=== PATIENT | male | born 1960 | race American Indian/Alaskan Native ===

== ENCOUNTER 2020-05-27 10:29 | Observation (INO) | payer OTHER ==
--- NOTE | 2020-05-27 11:41 | Emergency Department Report ---
HPI - General Chief Complaint: Altered Mental Status Time Seen by Provider: 05/27/20 11:27 - HPI HPI: This is a 59-year-old male who presents to the emergency department via EMS after he was found wandering around in the street. The patient recently had a stroke and was treated at [facility] and then sent to a personal jail. Patient has complaints about this personal jail including saying that there is "coronavirus there and some tyra last night." The patient also says that he "spent the last 2 weeks in the basement." Patient says that this morning he "had to get the hell out of there" and was walking up and down the street when he ran into some people who then called 911. The police arrived and then EMS was called. The patient is AAO x2 to person and place but is slightly off on time. He does know that Reji is the president. Patient is sometimes tearful and is a poor historian. Unknown if he has any residual deficits from the stroke. He also has a past medical history of hypertension. Patient complains of some generalized weakness and says "something was wrong, I do not know what's happening." ED Past Medical Hx - Past Medical History Previous Medical History?: Yes Hx Hypertension: Yes Hx CVA: Yes - Surgical History Additional Surgical History: unknown - Social History Smoking Status: Never Smoker Substance Use Type: None ED Review of Systems ROS: Stated complaint: CONFUSED Other details as noted in HPI Comment: All other systems reviewed and negative Constitutional: weakness. denies: fever Eyes: denies: vision change Respiratory: denies: cough, shortness of breath Cardiovascular: denies: chest pain, palpitations Gastrointestinal: denies: nausea, vomiting Musculoskeletal: denies: back pain, arthralgia Neurological: confusion. denies: headache Physical Exam - Physical Exam Vital Signs: Vital Signs 05/27/20 11:18 Temperature 97.9 F Pulse Rate 96 H Respiratory 18 Rate Blood Pressure 136/100 O2 Sat by Pulse 98 Oximetry Physical Exam: GENERAL: The patient is well-developed well-nourished. HENT: Normocephalic. Atraumatic. Patient has moist mucous membranes. EYES: Extraocular motions are intact. No nystagmus. NECK: Supple. Trachea is midline. CHEST/LUNGS: Clear to auscultation. There is no respiratory distress noted. HEART/CARDIOVASCULAR: Regular. There is no tachycardia. There is no murmur. ABDOMEN: Abdomen is soft, nontender. Patient has normal bowel sounds. SKIN: Skin is warm and dry. NEURO: The patient is awake, alert. Patient is AAO x2 to person and place but not time. The patient has no focal neurologic deficits. There is some mild dysarthria. MUSCULOSKELETAL: There is no tenderness or deformity. There is no limitation range of motion. PSYCH: Patient is emotionally labile. ED Course Vital Signs 05/27/20 11:18 Temperature 97.9 F Pulse Rate 96 H Respiratory 18 Rate Blood Pressure 136/100 O2 Sat by Pulse 98 Oximetry ED Medical Decision Making - Lab Data Result diagrams: 05/27/20 11:42 05/27/20 11:42 - EKG Data -: EKG Interpreted by [facility] EKG shows normal: sinus rhythm, axis, intervals (Prolonged VT interval), QRS complexes (Low voltage), ST-T waves Rate: normal - EKG Data Interpretation: other (Sinus rhythm at 86 bpm, normal axis, prolonged VT interval, low voltage QRS) - Radiology Data Radiology results: report reviewed CT HEAD WITHOUT CONTRAST INDICATION / CLINICAL INFORMATION: Altered mental status. TECHNIQUE: All CT scans at this location are performed using CT dose reduction for ALARA by means of automated exposure control. COMPARISON: None available. FINDINGS: HEMORRHAGE: None. EXTRA-AXIAL SPACES: Normal in size and morphology for the patient's age. VENTRICULAR SYSTEM: Normal in size and morphology for the patient's age. CEREBRAL PARENCHYMA: Encephalomalacia is noted of the right occipital lobe. Lacunar infarcts are noted of bilateral basal thalami and right basal ganglia. No evidence of large territory infarction. Chronic microvascular changes are noted of the periventricular subcortical white matter. CEREBELLUM / BRAINSTEM: No significant abnormality. ORBITS: Normal as visualized. SOFT TISSUES of HEAD: No significant abnormality. CALVARIUM: No significant abnormality. PARANASAL SINUSES / MASTOID AIR CELLS: Normal as visualized. ADDITIONAL FINDINGS: None. IMPRESSION: 1. No acute intracranial abnormality. 2. Encephalomalacia of the right occipital lobe. 3. Old lacunar infarcts of bilateral basal ganglia. 4. Chronic microvascular changes. - Medical Decision Making This patient presents to the emergency department after he was supposedly wandering around on the street. The patient says that he was not wandering but instead left his personal jail because he was unhappy there and felt it to be dangerous. However, it is difficult to know what the truth is that the patient is currently AAO x2 to person and place but not time. Patient has some mild dysarthria but also had a recent stroke and says that this is secondary to his previous stroke. Other than the dysarthria and the confusion, the patient does not have any other focal or lateralizing deficits at this time. There is no obvious last known well time. CT scan of the head without contrast does not show any bleed, shift, mass, ischemia, or any other acute process. Patient's labs have been unremarkable including CBC, metabolic panel, troponin, TSH, ammonia, blood alcohol level, UDS and urinalysis. Case management was able to get in touch with some family who is in another state and says the patient has some type of dementia. However we were unable to get an idea of exactly what his baseline mental status is and unable to find out about his personal jail. Patient symptoms could be secondary to dementia, encephalopathy, psychiatric disease versus other. The patient will be admitted to the hospital for further evaluation and treatment and was excepted for admission by the hospitalist, Dr. Turner. Critical Care Time: No Critical care attestation.: If time is entered above; I have spent that time in minutes in the direct care of this critically ill patient, excluding procedure time. ED Disposition Clinical Impression: Encephalopathy Altered mental status Qualifiers: Altered mental status type: unspecified Qualified Code(s): R41.82 - Altered mental status, unspecified Disposition: DC-[id number] OP ADMIT IP TO THIS HOSP Is pt being admited?: Yes Condition: Fair Time of Disposition: 14:13
[2020-05-27 12:07] LABS: Basophils # (Auto) 0.1 K/mm3 (0.0-0.1); Basophils % (Auto) 0.9 % (0.0-1.8); Eosinophils # (Auto) 0.1 K/mm3 (0.0-0.4); Eosinophils % (Auto) 1.1 % (0.0-4.3); Hematocrit 43.4 % (35.5-45.6); Hemoglobin 14.4 gm/dl (11.8-15.2); Lymphocytes # (Auto) 1.3 K/mm3 (1.2-5.4); Lymphocytes % (Auto) 21.5 % (13.4-35.0); Mean Corpuscular HGB Conc 33 % (32-34); Mean Corpuscular Volume 91 fl (84-94); Monocytes # (Auto) 0.7 K/mm3 (0.0-0.8); Monocytes % (Auto) 11.7 % (0.0-7.3); Platelet Count 230 K/mm3 (140-440); Red Blood Count 4.78 M/mm3 (3.65-5.03); Red Cell Distribution Width 14.6 % (13.2-15.2)
[2020-05-27 12:22] LABS: Alanine Aminotransferase 12 units/L (7-56); Albumin 3.8 g/dL (3.9-5); BUN/Creatinine Ratio 17; Blood Urea Nitrogen 17 mg/dL (9-20); Calcium 9.4 mg/dL (8.4-10.2); Hemolysis Index 78
--- NOTE | 2020-05-27 12:51 | Cat Scan Report ---
CT HEAD WITHOUT CONTRAST INDICATION / CLINICAL INFORMATION: Altered mental status. TECHNIQUE: All CT scans at this location are performed using CT dose reduction for ALARA by means of automated e xposure control. COMPARISON: None available. FINDINGS: HEMORRHAGE: None. EXTRA-AXIAL SPACES: Normal in size and morphology for the patient's age. VENTRICULAR SYSTEM: Normal in size and morphology for the patient's age. CEREBRAL PARENCHYMA: Encephalomalacia is noted of the right occipital lobe. Lacunar infarcts are note d of bilateral basal thalami and right basal ganglia. No evidence of large territory infarction. Clinic Nurse thania microvascular changes are noted of the periventricular subcortical white matter. CEREBELLUM / BRAINSTEM: No significant abnormality. ORBITS: Normal as visualized. SOFT TISSUES of HEAD: No significant abnormality. CALVARIUM: No significant abnormality. PARANASAL SINUSES / MASTOID AIR CELLS: Normal as visualized. ADDITIONAL FINDINGS: None. IMPRESSION: 1. No acute intracranial abnormality. 2. Encephalomalacia of the right occipital lobe. 3. Old lacunar infarcts of bilateral basal ganglia. 4. Chronic microvascular changes. Signer Name: Julius Perez MD Signed: 05/27/2020 12:46 PM Workstation Name: [id number]
[2020-05-27] MEDS ORDERED: ALPRAZolam 0.5 MG TAB PO ONE (14:09)
[2020-05-27] MEDS ORDERED: ZIPRASIDONE MESYLATE 20 MG VIAL IM ONE (14:23)
[2020-05-27] MEDS ORDERED: WATER FOR INJ Sterile (PF) 10 ML ONE (14:28)
[2020-05-27 15:20] LABS: Bilirubin,Urine NEG (Negative); Blood,Urine NEG (Negative); Color,Urine Yellow (Yellow); Mucus,Urine 3+ /HPF; Protein,Urine <15 mg/dL mg/dL (Negative)
[2020-05-27 15:25] LABS: Amphetamine Screen,Urine PRESUMPTIVE NEGATIVE; Benzodiazepines Screen,Urine PRESUMPTIVE NEGATIVE; Cannabinoid Screen,Urine PRESUMPTIVE NEGATIVE; Cocaine Screen,Urine PRESUMPTIVE NEGATIVE; Methadone Screen,Urine PRESUMPTIVE NEGATIVE; Opiate Screen,Urine PRESUMPTIVE NEGATIVE
--- NOTE | 2020-05-27 20:24 | History and Physical Report ---
History of Present Illness Date of examination: 05/27/20 Date of admission: 05/27/20 14:30 Chief complaint: AMS History of present illness: This is a 59-year-old male with history of bilateral PE on Xarelto, hypertension, vascular dementia, history of CVA on 2019 who presents to the emergency department via EMS after he was found wandering around in the street. The patient recently was treated at [facility] and then sent to a personal usp on May 22, 2020. Patient has complaints about this personal usp including saying that there is "coronavirus there and some tyra last night." The patient also says that he "spent the last 2 weeks in the basement." Patient says that this morning he "had to get the hell out of there" and was walking up and down the street when he ran into some people who then they called 911. The police arrived and then EMS was called. Patient is sometimes tearful and is a poor historian. Patient complains of some generalized weakness and says "something was wrong, I do not know what's happening." Patient is unable to provide any further details. Patient is being admitted for observation status and for placement. - Past Medical History Previous Medical History?: Yes Hx Hypertension: Yes Hx CVA: Yes hx PE: yes - Surgical History Additional Surgical History: unknown - Social History Smoking Status: Never Smoker Substance Use Type: None -family history: Unknown Review of Systems: Limited as patient appears to be confused Medications and Allergies Allergies Allergy/AdvReac Type Severity Reaction Status Date / Time Unable to Assess Allergy Unverified 05/27/20 11:18 Exam - Physical Exam Narrative exam: GENERAL: The patient is well-developed well-nourished. HENT: Normocephalic. Atraumatic. Patient has moist mucous membranes. EYES: Extraocular motions are intact. No nystagmus. NECK: Supple. Trachea is midline. CHEST/LUNGS: Clear to auscultation. There is no respiratory distress noted. HEART/CARDIOVASCULAR: Regular. There is no tachycardia. There is no murmur. ABDOMEN: Abdomen is soft, nontender. Patient has normal bowel sounds. SKIN: Skin is warm and dry. NEURO: The patient is awake, alert. Patient is AAO x2 to person and place but not time. The patient has no focal neurologic deficits. There is some mild dysarthria. MUSCULOSKELETAL: There is no tenderness or deformity. There is no limitation range of motion. PSYCH: Patient is emotionally labile. - Constitutional Vitals: Temp Pulse Resp BP Pulse Ox 97.4 F L 96 H 21 137/97 95 05/27/20 17:47 05/27/20 17:47 05/27/20 17:47 05/27/20 17:47 05/27/20 17:47 HEART Score - HEART Score Troponin: Troponin T < 0.010 ng/mL (0.00-0.029) 05/27/20 11:42 Results - Labs CBC & Chem 7: 05/27/20 11:42 05/27/20 11:42 Labs: Abnormal lab results 05/27/20 05/27/20 05/27/20 Range/Units 11:42 11:42 11:42 [place] % (Auto) 11.7 H (0.0-7.3) % Carbon Dioxide 21 L (22-30) mmol/L Ammonia 19.0 L (25-60) umol/L Albumin 3.8 L (3.9-5) g/dL - Imaging and Cardiology CT Scan - head: report reviewed Assessment and Plan Acute encephalopathy/delirium -Could be due to underlying history of dementia -CT head showed no acute findings -Patient does not have any focal neurological deficits -Continue supportive care, monitor with frequent neuro check CT head: No acute intracranial abnormality, encephalomalacia of the right occipital lobe, old lacunar infarct of bilateral basal ganglia, chronic microvascular changes. History of bilateral pulmonary embolism -Patient takes Xarelto at home B12 deficiency, continue replacement Hypertension, stable continue home meds Depression, major -Does not have any suicidal ideation or any agitation -Continue supportive care and continue home meds Osteoarthritis of the left hip -Pain meds as needed vascular Dementia associated with behavioral disturbance -Supportive care History of CVA 2019, - patient currently on aspirin, Xarelto and will continue statin Recurrent falls history of Impaired mobility and ADLs -We will consult PT DVT prophylaxis, patient on Xarelto Discharge planning issues: Consult briefcase sewer for placement
[2020-05-27] MEDS ORDERED: ACETAMINOPHEN 325 MG TAB PO PRN (20:31)
[2020-05-27] MEDS ORDERED: ONDANSETRON 4 MG/2 ML INJ IV PRN (20:31)
[2020-05-27] MEDS ORDERED: MELATONIN 5 MG TAB PO PRN (20:34)
[2020-05-27] MEDS ORDERED: SODIUM CHLORIDE 0.9% 1000 ML 1,000 ML IV SCH (20:45)
[2020-05-27] MEDS: CYANOCOBALAMIN (VIT B-12) 1000 MCG TAB PO SCH (21:32)
[2020-05-27] MEDS: FAMOTIDINE 10 MG TAB PO SCH (21:32)
[2020-05-27] MEDS: GABAPENTIN 100 MG CAP PO SCH (21:32)
[2020-05-27] MEDS: DOCUSATE SODIUM 100 MG CAP PO SCH (21:32)
[2020-05-27] MEDS: oxyCODONE /ACETAMINOPHEN 5-325MG TAB PO PRN (21:40)
[2020-05-27] MEDS: NORTRIPTYLINE 25 MG CAP PO SCH (21:40)
[2020-05-28] MEDS: GABAPENTIN 100 MG CAP PO SCH ×3 (06:21→21:33)
[2020-05-28] MEDS: CYANOCOBALAMIN (VIT B-12) 1000 MCG TAB PO SCH (08:59)
[2020-05-28] MEDS: FAMOTIDINE 10 MG TAB PO SCH ×2 (08:59→21:33)
[2020-05-28] MEDS: ASPIRIN EC 81 MG TAB PO SCH (08:59)
[2020-05-28] MEDS: amLODIPine 10 MG TAB PO SCH (08:59)
[2020-05-28] MEDS: DOCUSATE SODIUM 100 MG CAP PO SCH ×2 (08:59→21:33)
[2020-05-28] MEDS ORDERED: ZIPRASIDONE 20 MG CAP PO ONE (09:00)
[2020-05-28] MEDS ORDERED: RIVAROXABAN 10 MG TAB PO SCH (10:00)
--- NOTE | 2020-05-28 16:20 | Progress Note ---
Assessment and Plan - Patient Problems (1) Vascular dementia with behavioral disturbance Current Visit: Yes Status: Acute Plan to address problem: Supportive care, verbal prompting, verbal redirection, anxiolytic therapy as clinically indicated. (2) Cerebral atherosclerosis Current Visit: Yes Status: Acute Plan to address problem: Supportive care, risk factor reduction. Supportive care. (3) Debility Current Visit: Yes Status: Acute Plan to address problem: Supportive care, chronic, case management consulted for discharge planning/placement. (4) DVT prophylaxis Current Visit: Yes Status: Acute Plan to address problem: SCD to bilateral lower extremities while in bed, continue therapeutic anticoagulation. History Interval history: 59 YO Male HD #2 with Vascular Dementia with Behavioral disturbance, Cerebral Atherosclerosis, Debility, Recurrent Falls. Case management consulted for assistance with discharge planning and placement. No reported nursing events. Patient minimally cooperative with exam and interview. Hospitalist Physical - Constitutional Vitals: Temp Pulse Resp BP Pulse Ox 97.9 F 93 H 20 123/94 99 05/28/20 15:34 05/28/20 15:34 05/28/20 15:34 05/28/20 15:34 05/28/20 15:34 General appearance: Present: no acute distress - EENT Eyes: Present: PERRL, EOM intact ENT: hearing intact - Neck Neck: Present: supple - Respiratory Respiratory: bilateral: CTA - Cardiovascular Rhythm: regular Heart Sounds: Present: S1 & S2 - Extremities Extremities: no ischemia Peripheral Pulses: within normal limits - Abdominal General gastrointestinal: soft, non-tender, non-distended - Integumentary Integumentary: Present: clear, dry - Psychiatric Psychiatric: no appropriate mood/affect, no intact judgment & insight, memory intact, agitated - Neurologic Neurologic: CNII-XII intact, moves all extremities HEART Score - HEART Score Troponin: Troponin T < 0.010 ng/mL (0.00-0.029) 05/27/20 11:42 Results - Labs CBC & Chem 7: 05/27/20 11:42 05/27/20 11:42 Labs: Laboratory Last Values WBC 6.1 K/mm3 (4.5-11.0) 05/27/20 11:42 RBC 4.78 M/mm3 (3.65-5.03) 05/27/20 11:42 Hgb 14.4 gm/dl (11.8-15.2) 05/27/20 11:42 Hct 43.4 % (35.5-45.6) 05/27/20 11:42 MCV 91 fl (84-94) 05/27/20 11:42 MCH 30 pg (28-32) 05/27/20 11:42 MCHC 33 % (32-34) 05/27/20 11:42 RDW 14.6 % (13.2-15.2) 05/27/20 11:42 Plt Count 230 K/mm3 (140-440) 05/27/20 11:42 Lymph % (Auto) 21.5 % (13.4-35.0) 05/27/20 11:42 [place] % (Auto) 11.7 % (0.0-7.3) H 05/27/20 11:42 Eos % (Auto) 1.1 % (0.0-4.3) 05/27/20 11:42 Baso % (Auto) 0.9 % (0.0-1.8) 05/27/20 11:42 Lymph # 1.3 K/mm3 (1.2-5.4) 05/27/20 11:42 [place] # 0.7 K/mm3 (0.0-0.8) 05/27/20 11:42 Eos # 0.1 K/mm3 (0.0-0.4) 05/27/20 11:42 Baso # 0.1 K/mm3 (0.0-0.1) 05/27/20 11:42 Seg Neutrophils % 64.8 % (40.0-70.0) 05/27/20 11:42 Seg Neutrophils # 4.0 K/mm3 (1.8-7.7) 05/27/20 11:42 Sodium 141 mmol/L (137-145) 05/27/20 11:42 Potassium 4.5 mmol/L (3.6-5.0) 05/27/20 11:42 Chloride 106.3 mmol/L (98-107) 05/27/20 11:42 Carbon Dioxide 21 mmol/L (22-30) L 05/27/20 11:42 Anion Gap 18 mmol/L 05/27/20 11:42 BUN 17 mg/dL (9-20) 05/27/20 11:42 Creatinine 1.0 mg/dL (0.8-1.3) 05/27/20 11:42 Estimated GFR > 60 ml/min 05/27/20 11:42 BUN/Creatinine Ratio 17 % 05/27/20 11:42 Glucose 92 mg/dL (75-100) 05/27/20 11:42 Calcium 9.4 mg/dL (8.4-10.2) 05/27/20 11:42 Total Bilirubin 0.60 mg/dL (0.1-1.2) 05/27/20 11:42 AST 16 units/L (5-40) 05/27/20 11:42 ALT 12 units/L (7-56) 05/27/20 11:42 Alkaline Phosphatase 82 units/L (35-129) 05/27/20 11:42 Ammonia 19.0 umol/L (25-60) L 05/27/20 11:42 Troponin T < 0.010 ng/mL (0.00-0.029) 05/27/20 11:42 Total Protein 7.2 g/dL (6.3-8.2) 05/27/20 11:42 Albumin 3.8 g/dL (3.9-5) L 05/27/20 11:42 Albumin/Globulin Ratio 1.1 % 05/27/20 11:42 TSH 1.160 mlU/mL (0.270-4.200) 05/27/20 11:42 Urine Color Yellow (Yellow) 05/27/20 Unknown Urine Turbidity Clear (Clear) 05/27/20 Unknown Urine pH 5.0 (5.0-7.0) 05/27/20 Unknown Ur Specific [place] 1.029 (1.003-1.030) 05/27/20 Unknown Urine Protein <15 mg/dl mg/dL (Negative) 05/27/20 Unknown Urine Glucose (UA) Neg mg/dL (Negative) 05/27/20 Unknown Urine Ketones Tr mg/dL (Negative) 05/27/20 Unknown Urine Blood Neg (Negative) 05/27/20 Unknown Urine Nitrite Neg (Negative) 05/27/20 Unknown Urine Bilirubin Neg (Negative) 05/27/20 Unknown Urine Urobilinogen 2.0 mg/dL (<2.0) 05/27/20 Unknown Ur Leukocyte Esterase Neg (Negative) 05/27/20 Unknown Urine WBC (Auto) 2.0 /HPF (0.0-6.0) 05/27/20 Unknown Urine RBC (Auto) 2.0 /HPF (0.0-6.0) 05/27/20 Unknown U Epithel Cells (Auto) 3.0 /HPF (0-13.0) 05/27/20 Unknown Urine Mucus 3+ /HPF 05/27/20 Unknown Urine Opiates Screen Presumptive negative 05/27/20 Unknown Urine Methadone Screen Presumptive negative 05/27/20 Unknown Ur Barbiturates Screen Presumptive negative 05/27/20 Unknown Ur Phencyclidine Scrn Presumptive negative 05/27/20 Unknown Ur Amphetamines Screen Presumptive negative 05/27/20 Unknown U Benzodiazepines Scrn Presumptive negative 05/27/20 Unknown Urine Cocaine Screen Presumptive negative 05/27/20 Unknown U Marijuana (THC) Screen Presumptive negative 05/27/20 Unknown Drugs of Abuse Note Disclamer 05/27/20 Unknown Plasma/Serum Alcohol < 0.01 % (0-0.07) 05/27/20 11:42 Lora/IV: Voiding Method Toilet IV Catheter Type [Left Hand] INT / Saline Lock Active Medications - Current Medications Current Medications: Generic Name Dose Route Start Last Admin Trade Name Freq PRN Reason Stop Dose Admin Acetaminophen 650 mg 05/27/20 20:31 Tylenol PO Q4H PRN Pain MILD(1-3)/Fever >100.5/COLLINS Amlodipine Besylate 10 mg 05/28/20 10:00 05/28/20 08:59 Amlodipine PO 10 mg QDAY JESS Administration Aspirin 81 mg 05/28/20 10:00 05/28/20 08:59 Halfprin Ec PO 81 mg QDAY JESS Administration Atorvastatin Calcium 40 mg 05/27/20 22:00 05/27/20 21:32 Lipitor PO 40 mg QHS JESS Administration Cyanocobalamin 1,000 mcg 05/27/20 21:00 05/28/20 08:59 Vitamin B-12 PO 1,000 mcg QDAY JESS Administration Docusate Sodium 100 mg 05/27/20 22:00 05/28/20 08:59 Colace PO 100 mg BID JESS Administration Famotidine 10 mg 05/27/20 22:00 05/28/20 08:59 Pepcid PO 10 mg BID JESS Administration Gabapentin 100 mg 05/27/20 22:00 05/28/20 13:28 Gabapentin PO 100 mg Q8HR JESS Administration Sodium Chloride 1,000 mls @ 100 mls/hr 05/27/20 20:45 05/27/20 21:31 Nacl 0.9% 1000 Ml IV 100 mls/hr DIRECT JESS Administration Labetalol HCl 10 mg 05/27/20 20:31 Labetalol IV Q4H PRN Hypertension Melatonin 5 mg 05/27/20 20:34 Melatonin PO QHS PRN Sleep Nortriptyline HCl 25 mg 05/27/20 22:00 05/27/20 21:40 Pamelor PO 25 mg QHS JESS Administration Ondansetron HCl 4 mg 05/27/20 20:31 Zofran IV Q8H PRN N/V unrelieved by Reglan Oxycodone/Acetaminophen 1 tab 05/27/20 20:31 05/27/20 21:40 Percocet 5/325 PO 1 tab Q6H PRN Administration Pain, Moderate (4-6) Rivaroxaban 20 mg 05/29/20 10:00 Xarelto PO QDAY JESS Protocol Nutrition/Malnutrition Assess - Dietary Evaluation Nutrition/Malnutrition Findings: Nutrition Notes Start: 05/28/20 10:18 Freq: Status: Active Protocol: Document 05/28/20 10:19 LP (Rec: 05/28/20 10:21 LP [email or web address]) Nutrition Notes Need for Assessment generated from: environmental officer Initial or Follow up Brief Note Current Diagnosis Hypertension,Stroke Other Pertinent Diagnosis Dementia Current Diet Cardiac Subjective/Other Information Screen for MST. Pt did not answer phone. Nutrition Intervention Follow-Up By: 05/30/20 Additional Comments Follow for intakes
[2020-05-28] MEDS: oxyCODONE /ACETAMINOPHEN 5-325MG TAB PO PRN (20:37)
[2020-05-28] MEDS: NORTRIPTYLINE 25 MG CAP PO SCH (21:33)
[2020-05-29] MEDS: GABAPENTIN 100 MG CAP PO SCH ×3 (06:48→22:35)
[2020-05-29] MEDS: oxyCODONE /ACETAMINOPHEN 5-325MG TAB PO PRN (10:56)
[2020-05-29] MEDS: DOCUSATE SODIUM 100 MG CAP PO SCH ×2 (10:56→22:35)
[2020-05-29] MEDS: FAMOTIDINE 10 MG TAB PO SCH ×2 (10:56→22:35)
[2020-05-29] MEDS: amLODIPine 10 MG TAB PO SCH (10:56)
[2020-05-29] MEDS: ASPIRIN EC 81 MG TAB PO SCH (10:57)
[2020-05-29] MEDS: RIVAROXABAN 20 MG TAB PO SCH (13:30)
[2020-05-29] MEDS: CYANOCOBALAMIN (VIT B-12) 1000 MCG TAB PO SCH (13:31)
--- NOTE | 2020-05-29 19:39 | Progress Note ---
Assessment and Plan - Patient Problems (1) Vascular dementia with behavioral disturbance Current Visit: Yes Status: Acute Plan to address problem: Supportive care, verbal prompting, verbal redirection, anxiolytic therapy as clinically indicated. Patient medically optimized and is at his baseline level of cognition and function (2) Cerebral atherosclerosis Current Visit: Yes Status: Acute Plan to address problem: Supportive care, risk factor reduction. Supportive care. (3) Debility Current Visit: Yes Status: Acute Plan to address problem: Supportive care, chronic, case management consulted for discharge planning/placement. (4) Passive suicidal ideations Current Visit: Yes Status: Acute Plan to address problem: Patient states that he will in his own life if he is discharged back to his previous personal shelter. Mental health consulted. (5) DVT prophylaxis Current Visit: Yes Status: Acute Plan to address problem: SCD to bilateral lower extremities while in bed, continue therapeutic anticoagulation. History Interval history: 59 YO Male HD #3 with Vascular Dementia with Behavioral disturbance, Cerebral Atherosclerosis, Debility, Recurrent Falls. Case management consulted for assistance with discharge planning and placement. Patient minimally cooperative with exam and interview. Patient medically optimized and is at his baseline level of cognition as well as function. Nursing staff report combative behavior. As per case management the patient reports that he will in his own life if discharged back to his previous personal shelter. Hospitalist Physical - Constitutional Vitals: Temp Pulse Resp BP Pulse Ox 98.2 F 100 H 20 152/109 98 05/29/20 17:02 05/29/20 17:02 05/29/20 17:02 05/29/20 17:02 05/29/20 17:02 General appearance: Present: no acute distress - EENT Eyes: Present: PERRL ENT: hearing intact - Neck Neck: Present: supple - Respiratory Respiratory effort: normal Respiratory: bilateral: CTA - Cardiovascular Rhythm: regular Heart Sounds: Present: S1 & S2 - Extremities Extremities: no ischemia Peripheral Pulses: within normal limits - Abdominal General gastrointestinal: soft, non-tender, non-distended - Integumentary Integumentary: Present: clear, dry - Psychiatric Psychiatric: no appropriate mood/affect, intact judgment & insight, memory intact, agitated - Neurologic Neurologic: CNII-XII intact HEART Score - HEART Score Troponin: Troponin T < 0.010 ng/mL (0.00-0.029) 05/27/20 11:42 Results - Labs CBC & Chem 7: 05/27/20 11:42 05/27/20 11:42 Labs: Laboratory Last Values WBC 6.1 K/mm3 (4.5-11.0) 05/27/20 11:42 RBC 4.78 M/mm3 (3.65-5.03) 05/27/20 11:42 Hgb 14.4 gm/dl (11.8-15.2) 05/27/20 11:42 Hct 43.4 % (35.5-45.6) 05/27/20 11:42 MCV 91 fl (84-94) 05/27/20 11:42 MCH 30 pg (28-32) 05/27/20 11:42 MCHC 33 % (32-34) 05/27/20 11:42 RDW 14.6 % (13.2-15.2) 05/27/20 11:42 Plt Count 230 K/mm3 (140-440) 05/27/20 11:42 Lymph % (Auto) 21.5 % (13.4-35.0) 05/27/20 11:42 [place] % (Auto) 11.7 % (0.0-7.3) H 05/27/20 11:42 Eos % (Auto) 1.1 % (0.0-4.3) 05/27/20 11:42 Baso % (Auto) 0.9 % (0.0-1.8) 05/27/20 11:42 Lymph # 1.3 K/mm3 (1.2-5.4) 05/27/20 11:42 [place] # 0.7 K/mm3 (0.0-0.8) 05/27/20 11:42 Eos # 0.1 K/mm3 (0.0-0.4) 05/27/20 11:42 Baso # 0.1 K/mm3 (0.0-0.1) 05/27/20 11:42 Seg Neutrophils % 64.8 % (40.0-70.0) 05/27/20 11:42 Seg Neutrophils # 4.0 K/mm3 (1.8-7.7) 05/27/20 11:42 Sodium 141 mmol/L (137-145) 05/27/20 11:42 Potassium 4.5 mmol/L (3.6-5.0) 05/27/20 11:42 Chloride 106.3 mmol/L (98-107) 05/27/20 11:42 Carbon Dioxide 21 mmol/L (22-30) L 05/27/20 11:42 Anion Gap 18 mmol/L 05/27/20 11:42 BUN 17 mg/dL (9-20) 05/27/20 11:42 Creatinine 1.0 mg/dL (0.8-1.3) 05/27/20 11:42 Estimated GFR > 60 ml/min 05/27/20 11:42 BUN/Creatinine Ratio 17 % 05/27/20 11:42 Glucose 92 mg/dL (75-100) 05/27/20 11:42 Calcium 9.4 mg/dL (8.4-10.2) 05/27/20 11:42 Total Bilirubin 0.60 mg/dL (0.1-1.2) 05/27/20 11:42 AST 16 units/L (5-40) 05/27/20 11:42 ALT 12 units/L (7-56) 05/27/20 11:42 Alkaline Phosphatase 82 units/L (35-129) 05/27/20 11:42 Ammonia 19.0 umol/L (25-60) L 05/27/20 11:42 Troponin T < 0.010 ng/mL (0.00-0.029) 05/27/20 11:42 Total Protein 7.2 g/dL (6.3-8.2) 05/27/20 11:42 Albumin 3.8 g/dL (3.9-5) L 05/27/20 11:42 Albumin/Globulin Ratio 1.1 % 05/27/20 11:42 TSH 1.160 mlU/mL (0.270-4.200) 05/27/20 11:42 Urine Color Yellow (Yellow) 05/27/20 Unknown Urine Turbidity Clear (Clear) 05/27/20 Unknown Urine pH 5.0 (5.0-7.0) 05/27/20 Unknown Ur Specific [place] 1.029 (1.003-1.030) 05/27/20 Unknown Urine Protein <15 mg/dl mg/dL (Negative) 05/27/20 Unknown Urine Glucose (UA) Neg mg/dL (Negative) 05/27/20 Unknown Urine Ketones Tr mg/dL (Negative) 05/27/20 Unknown Urine Blood Neg (Negative) 05/27/20 Unknown Urine Nitrite Neg (Negative) 05/27/20 Unknown Urine Bilirubin Neg (Negative) 05/27/20 Unknown Urine Urobilinogen 2.0 mg/dL (<2.0) 05/27/20 Unknown Ur Leukocyte Esterase Neg (Negative) 05/27/20 Unknown Urine WBC (Auto) 2.0 /HPF (0.0-6.0) 05/27/20 Unknown Urine RBC (Auto) 2.0 /HPF (0.0-6.0) 05/27/20 Unknown U Epithel Cells (Auto) 3.0 /HPF (0-13.0) 05/27/20 Unknown Urine Mucus 3+ /HPF 05/27/20 Unknown Urine Opiates Screen Presumptive negative 05/27/20 Unknown Urine Methadone Screen Presumptive negative 05/27/20 Unknown Ur Barbiturates Screen Presumptive negative 05/27/20 Unknown Ur Phencyclidine Scrn Presumptive negative 05/27/20 Unknown Ur Amphetamines Screen Presumptive negative 05/27/20 Unknown U Benzodiazepines Scrn Presumptive negative 05/27/20 Unknown Urine Cocaine Screen Presumptive negative 05/27/20 Unknown U Marijuana (THC) Screen Presumptive negative 05/27/20 Unknown Drugs of Abuse Note Disclamer 05/27/20 Unknown Plasma/Serum Alcohol < 0.01 % (0-0.07) 05/27/20 11:42 Lora/IV: Voiding Method Urinal IV Catheter Type [Left Hand] INT / Saline Lock Active Medications - Current Medications Current Medications: Generic Name Dose Route Start Last Admin Trade Name Freq PRN Reason Stop Dose Admin Acetaminophen 650 mg 05/27/20 20:31 Tylenol PO Q4H PRN Pain MILD(1-3)/Fever >100.5/COLLINS Amlodipine Besylate 10 mg 05/28/20 10:00 05/29/20 10:56 Amlodipine PO 10 mg QDAY JESS Administration Aspirin 81 mg 05/28/20 10:00 05/29/20 10:57 Halfprin Ec PO 81 mg QDAY JESS Administration Atorvastatin Calcium 40 mg 05/27/20 22:00 05/28/20 21:33 Lipitor PO 40 mg QHS JESS Administration Cyanocobalamin 1,000 mcg 05/27/20 21:00 05/29/20 13:31 Vitamin B-12 PO 1,000 mcg QDAY JESS Administration Docusate Sodium 100 mg 05/27/20 22:00 05/29/20 10:56 Colace PO 100 mg BID JESS Administration Famotidine 10 mg 05/27/20 22:00 05/29/20 10:56 Pepcid PO 10 mg BID JESS Administration Gabapentin 100 mg 05/27/20 22:00 05/29/20 13:31 Gabapentin PO 100 mg Q8HR JESS Administration Sodium Chloride 1,000 mls @ 100 mls/hr 05/27/20 20:45 05/27/20 21:31 Nacl 0.9% 1000 Ml IV 100 mls/hr DIRECT JESS Administration Labetalol HCl 10 mg 05/27/20 20:31 Labetalol IV Q4H PRN Hypertension Melatonin 5 mg 05/27/20 20:34 05/28/20 21:33 Melatonin PO 5 mg QHS PRN Administration Sleep Nortriptyline HCl 25 mg 05/27/20 22:00 05/28/20 21:33 Pamelor PO 25 mg QHS JESS Administration Ondansetron HCl 4 mg 05/27/20 20:31 Zofran IV Q8H PRN N/V unrelieved by Reglan Oxycodone/Acetaminophen 1 tab 05/27/20 20:31 05/29/20 10:56 Percocet 5/325 PO 1 tab Q6H PRN Administration Pain, Moderate (4-6) Rivaroxaban 20 mg 05/29/20 10:00 05/29/20 13:30 Xarelto PO 20 mg QDAY JESS Administration Protocol Nutrition/Malnutrition Assess - Dietary Evaluation Nutrition/Malnutrition Findings: Nutrition Notes Start: 05/28/20 10:18 Freq: Status: Active Protocol: Document 05/28/20 10:19 LP (Rec: 05/28/20 10:21 LP [id number]) Nutrition Notes 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 Pt did not answer phone. Nutrition Intervention Follow-Up By: 05/30/20 Additional Comments Follow for intakes
[2020-05-29] MEDS: NORTRIPTYLINE 25 MG CAP PO SCH (22:37)
[2020-05-30] MEDS: GABAPENTIN 100 MG CAP PO SCH ×2 (05:42→14:27)
--- NOTE | 2020-05-30 11:38 | Consultation ---
History of Present Illness - Reason for Consult Consult date: 05/30/20 Reason for consult: SI - History of Present Psychiatric Illness Pino Arzate is a 59y/o male patient who presented to the ER with altered mental status. During my interview with the patient, he is sitting up in a chair. He is a/o x 2. He could not remember the date. He is complaining of his eyes burning. He says, "something they gave me makes my eyes burn." The patient appears a little anxious. He states he's doing "alright." The patient denies SI/HI or ever being or having an attempt in the past. He states, "they were going to send me to that other place. It's so messed up." He then says "they try to make you stay in the house." The patient says, "I'm scared they are going to try and take me back there." The patient denies hallucinations of any kind. He denies any psychiatric history or admissions. The patient also denies being on any psych medications. He denies any illicit drug use, alcohol or nicotine. PAST PSYCHIATRIC HISTORY: Diagnoses: Denies Suicide attempts or Self-harm behavior: Denies Prior psychiatric hospitalizations: Denies Substance Abuse history: Denies Previous psychiatric medications tried: Denies Outpatient treatment: Denies PAST MEDICAL HISTORY: None reported Family Psychiatric History: None reported or documented SOCIAL HISTORY Marital Status: Single Living Arrangements: detention Employment Status: Disabled Access to guns/weapons: Denies Education: History of Abuse: Denies Legal History: Denies MSE Appearance: Wearing appropriate clothing. Behavior: Appears a little anxious, cooperative Mood: "alright" Affect: Congruent with stated mood Thought Process: Goal directed Speech: Normal tone and pace Thought Content Suicidal: Denies Homicidal: Denies Hallucinations: Denies Delusions: none elicited Consciousness: alert. Cognition/Memory: Limited Insight/Judgment: Limited. Diagnoses: Generalized Anxiety Disorder Treatment Plan No scripts given Sitter: Defer to primary Medical: Per primary Disposition: Do not recommend acute inpatient psychiatric treatment. The patient understands that if suicidal thoughts or tendencies are to arise he is to seek immediate assistance including but not limited to the crisis hotline, 911/ER. Will sign off. Thank you for this consult. Medications and Allergies Allergies Allergy/AdvReac Type Severity Reaction Status Date / Time No Known Allergies Allergy Unverified 05/27/20 20:47 Home Medications Medication Instructions Recorded Confirmed Last Taken Type No Known Home Medications [No 05/27/20 05/27/20 Unknown History Reported Home Medications] Active Meds: Active Medications Acetaminophen (Tylenol) 650 mg PO Q4H PRN PRN Reason: Pain MILD(1-3)/Fever >100.5/COLLINS Amlodipine Besylate (Amlodipine) 10 mg PO QDAY ON LICENSE OF [facility] Last Admin: 05/29/20 10:56 Dose: 10 mg Documented by: Aspirin (Halfprin Ec) 81 mg PO QDAY ON LICENSE OF [facility] Last Admin: 05/29/20 10:57 Dose: 81 mg Documented by: Atorvastatin Calcium (Lipitor) 40 mg PO QHS ON LICENSE OF [facility] Last Admin: 05/29/20 22:35 Dose: 40 mg Documented by: Cyanocobalamin (Vitamin B-12) 1,000 mcg PO QDAY ON LICENSE OF [facility] Last Admin: 05/29/20 13:31 Dose: 1,000 mcg Documented by: Docusate Sodium (Colace) 100 mg PO BID ON LICENSE OF [facility] Last Admin: 05/29/20 22:35 Dose: 100 mg Documented by: Famotidine (Pepcid) 10 mg PO BID ON LICENSE OF [facility] Last Admin: 05/29/20 22:35 Dose: 10 mg Documented by: Gabapentin (Gabapentin) 100 mg PO Q8HR ON LICENSE OF [facility] Last Admin: 05/30/20 05:42 Dose: 100 mg Documented by: Sodium Chloride (Nacl 0.9% 1000 Ml) 1,000 mls @ 100 mls/hr IV DIRECT ON LICENSE OF [facility] Last Admin: 05/27/20 21:31 Dose: 100 mls/hr Documented by: Labetalol HCl (Labetalol) 10 mg IV Q4H PRN PRN Reason: Hypertension Melatonin (Melatonin) 5 mg PO QHS PRN PRN Reason: Sleep Last Admin: 05/28/20 21:33 Dose: 5 mg Documented by: Nortriptyline HCl (Pamelor) 25 mg PO QHS ON LICENSE OF [facility] Last Admin: 05/29/20 22:37 Dose: 25 mg Documented by: Ondansetron HCl (Zofran) 4 mg IV Q8H PRN PRN Reason: N/V unrelieved by Reglan Oxycodone/Acetaminophen (Percocet 5/325) 1 tab PO Q6H PRN PRN Reason: Pain, Moderate (4-6) Last Admin: 05/29/20 10:56 Dose: 1 tab Documented by: Rivaroxaban (Xarelto) 20 mg PO QDAY JESS; Protocol Last Admin: 05/29/20 13:30 Dose: 20 mg Documented by: Mental Status Exam - Vital signs Last Vital Signs Temp 97.7 F 05/30/20 05:32 Pulse 88 05/30/20 05:32 Resp 20 05/30/20 05:32 BP 152/90 05/30/20 05:32 Pulse Ox 94 05/30/20 05:32 Results Result Diagrams: 05/27/20 11:42 05/27/20 11:42 All other labs normal.
[2020-05-30] MEDS: DOCUSATE SODIUM 100 MG CAP PO SCH (12:25)
[2020-05-30] MEDS: ASPIRIN EC 81 MG TAB PO SCH (12:25)
[2020-05-30] MEDS: CYANOCOBALAMIN (VIT B-12) 1000 MCG TAB PO SCH (12:25)
[2020-05-30] MEDS: amLODIPine 10 MG TAB PO SCH (12:25)
[2020-05-30] MEDS: FAMOTIDINE 10 MG TAB PO SCH (12:25)
[2020-05-30] MEDS: RIVAROXABAN 20 MG TAB PO SCH (14:27)
[2020-05-30 17:36] VITALS: BP 152/92
== END 2020-05-30 18:47 | disposition home or self-care (01) ==
LOC: ED 10:29 → 3A 14:30
PROVIDERS: ADMIT Internal Medicine; ATTEND Internal Medicine
DX: G93.40 Encephalopathy, unspecified (principal); I10 Essential (primary) hypertension; I67.2 Cerebral atherosclerosis; R41.82 Altered mental status, unspecified; M16.12 Unilateral primary osteoarthritis, left hip; R45.851 Suicidal ideations; E53.8 Deficiency of other specified B group vitamins; F32.9 Major depressive disorder, single episode, unspecified; F01.51 Vascular dementia, unspecified severity, with behavioral disturbance; F41.9 Anxiety disorder, unspecified; Z86.73 Personal history of transient ischemic attack (TIA), and cerebral infarction without residual deficits; Z86.711 Personal history of pulmonary embolism
CPT/HCPCS: 36415; 70450; 80053; 80307; 81001; 82140; 84443; 84484; 85025; 93005; 96360; 96361; 96372; 99285; A9270; G0378; J3486; J7030; 80320; G0480